=== PATIENT | male | born 2000 | race Caucasian/White ===

== ENCOUNTER 2023-10-07 18:19 | Emergency (ER) | payer MEDICAID ==
[~2023-10-07] VITALS: Ht 177.8 cm; Wt 64.8 kg
[~2023-10-07 18:19] MED LIST: DIVALPROEX SODIUM 125 MG; VYVANSE 30 MG
[2023-10-07 20:14] VITALS: BP 116/82; PULSE 65; RESP 15; TEMP 99.1; O2SAT 99
== END 2023-10-07 20:15 | disposition home or self-care (01) ==
LOC: ER 18:19
DX: R52 Pain, unspecified (principal); E11.9 Type 2 diabetes mellitus without complications; Z20.822 Contact with and (suspected) exposure to COVID-19
CPT/HCPCS: 36415; 87811; 99283